=== PATIENT | female | born 1985 | race Caucasian/White ===

== ENCOUNTER 2021-01-02 14:13 | Day surgery (SDC) | payer BC, SELFPAY ==
--- NOTE | 2021-01-02 14:11 | PM.IMHP ---
H&P: HPI History of Present Illness Date/Time: 01/02/21 14:11 Chief Complaint: incomplete ab Narrative: Andria Kwon is a 35 year old female T3 P2 is admitted for suction D&C secondary to incomplete 1st trimester AB. She is actively bleeding and cervix is open. Risks and benefit Meds Home Medications and Allergies Allergies Allergy/AdvReac Type Severity Reaction Status Date / Time No Known Allergies Allergy Mild Unverified 05/01/09 23:55 Exam Const: General: no acute distress Eyes: General: appearance normal, both eyes and all related structures Neck: Neck: supple and no JVD Thyroid: thyroid normal Resp: Effort & Inspection: normal respiratory effort Auscultation: clear to auscultation bilaterally Cardio: Rate: regular rate Rhythm: regular rhythm GI: Inspection: non-distended GI Palp: Yes Soft to palpation, No Tenderness to palpation present (GI) and No Guarding due to palpation present (GI) Auscultation: normal bowel sounds : External Female Exam: normal external appearance Speculum Exam - Vagina: vaginal bleeding Speculum Exam - Cervix: Cervical os open Skin: General skin exam: no rashes or lesions noted Extrem: General: normal to inspection and no edema Psych: Mental Status: mental status grossly normal Affect: normal affect Assessment and Plan Additional Plan impression: 1St trimester incomplete AB Plan: Suction dilatation and curettage
--- NOTE | 2021-01-02 14:14 | WPDHPUPDATE1 ---
History and Physical Update Update Date/Time: 01/02/21 14:14 History and Physical has been reviewed, including an updated exam of the patient. There are NO changes in the patient's condition. Risks, benefits, and alternatives have been discussed and questions answered. Patient agrees to proceed with procedure.
[2021-01-02 14:42] VITALS: BP 121/58; PULSE 94; RESP 18; TEMP 37.1; O2SAT 98
[2021-01-02] MEDS: ACETAMINOPHEN 500 MG TABLET 1000 MG PO (14:46)
[2021-01-02 14:49] VITALS: BMI 22.4
--- NOTE | 2021-01-02 14:59 | WPDANESEPPF ---
Anes - Initial Pre Proc Eval Procedure: Operation Date: 01/02/21 15:00 Proposed Procedures p Suction Dilatation And Curettage - Bill Callahan MD Date/Time: 01/02/21 14:59 Surgeon: Bill Callahan MD Pre Op Diagnosis: Missed Ab Patient Data Age: 35 Gender: F Height: 5 ft 6.5 in Weight: 63.8 kg Last Vital Signs Temp 37.1 C 01/02/21 14:42 Pulse 94 01/02/21 14:42 Resp 18 01/02/21 14:42 BP 121/58 L 01/02/21 14:42 Pulse Ox 98 01/02/21 14:42 Allergies Allergy/AdvReac Type Severity Reaction Status Date / Time Penicillins Allergy Unknown Verified 01/02/21 14:46 Home Medications Medication Instructions Recorded Confirmed Type No Home Medications 01/02/21 01/02/21 History Patient hx anesthesia problems: none Family hx anesthesia problems: none Anes - Eval Final PreProcedure Day of Procedure 01/02/21 14:59 Patient weight: normal Heart: regular rate and rhythm Lungs: clear to auscultation Airway: Mallampati scale class 1 Neurological: alert and oriented Last oral intake: 6 hours ASA classification: II Emergent: yes Anesthetic plan: proceed Anesthesia type and monitoring: general GIVS and standard monitoring Informed Consent: The patient's anesthetic plan and its attendant risks and benefits were discussed with the patient/family/POA. Questions were solicited and answers provided to the satisfaction of the patient/family/POA.
[2021-01-02] MEDS: LACTATED RINGERS 1,000 ML 30 ML IV CONT (15:11)
[2021-01-02] MEDS: KETOROLAC 30 MG/ML VIAL (*BKC) IV PUSH (16:04)
[2021-01-02] MEDS: LIDOCAINE HCL 1% LOCAL INJ 20 ML VIAL 50 ML INFILTRATE (16:08)
--- NOTE | 2021-01-02 16:12 | PM.PROC ---
Procedure Note - Detailed Date of procedure: 01/02/21 Pre-op diagnosis: Missed Ab Surgeon: Bill Callahan MD postop diagnosis: Missed AB Procedure: Suction dilatation and curettage EBL: 25cc Anesthesia: IV sedation and local Complications: None Findings: Tissue consistent with products of in section. Description of procedure: The patient prepped draped in normal sterile fashion placed in dorsal lithotomy position. Under excellent IV sedation weighted speculum was placed in the posterior fornix of vagina. Anterior lip of the cervix was grasped with ring forceps. Uterus sounded to 11cm. Serial dilatation with fragmented dilators performed followed by passage of the 10. Suction curette removing a moderate amount of placental tissue. When a good grating sound was heard the procedure was terminated. All sponge, needle, instrument counts were correct. There were no immediate complications. She did not require RhoGAM as she is Rh positive
[2021-01-02 16:16] VITALS: BP 108/65; PULSE 74; RESP 16; O2SAT 98
[2021-01-02 16:45] VITALS: BP 107/69; PULSE 61; RESP 16
== END 2021-01-02 17:08 | disposition home or self-care (01) ==
PROVIDERS: PCP Internal Medicine; Visit Provider Obstetrics & Gynecology
PROC: (CPT 59820; principal; 2021-01-02 15:00)
DX: O02.1 Missed abortion (principal)
CPT/HCPCS: 59820; 88305; A9270; J1885; J2250; J2405; J2704; J3010; J7120

== ENCOUNTER 2023-05-13 08:30 | Outpatient (CLI) | payer BC, SELFPAY ==
[2023-05-14 15:27] LABS: Hematocrit 42.5 % (37.0-47.0); Hemoglobin 14.2 g/dL (12.0-15.0)
== END 2023-05-13 08:31 | disposition home or self-care (01) ==
LOC: ANHSURGERY 17:13
PROVIDERS: PCP Internal Medicine; Visit Provider Internal Medicine
DX: Z01.818 Encounter for other preprocedural examination (principal)
CPT/HCPCS: 36415; 85014; 85018; 86850; 86900; 86901

== ENCOUNTER 2023-05-15 00:13 | Day surgery (SDC) | payer BC, SELFPAY ==
[2023-05-12 13:43] VITALS: BMI 23.1
--- NOTE | 2023-05-12 13:48 | PC.NURSE ---
Report to the Outpatient Waiting Room, entrance under the green pavilion located off [facility], at time _0815_ on date _05/15/23_. Planned Procedure Time: _1015_. Time changes happen often and if your time is changed the preop area will call you the afternoon before. - You and your visitor will be asked to self-screen and do not enter if you have any COVID symptoms. - A mask is optional within the hospital at this time. Patients may have clear liquids (water, carbonated beverages, clear teas, apple juice) until 3 hours prior to surgery with a maximum of 20 ounces. - No food from midnight until time of surgery - Infants may have breast milk until 4 hours before surgery, infant formula 6 hours prior to surgery. - Children will be allowed to drink immediately following surgery. If applicable, please bring a bottle or sippy cup to assist with drinking. Juice, water, soda, and popsicles are readily available. For infants on formula, please bring formula the day of surgery. Pacifiers are allowed. Take the following medications with a SIP of water the morning of surgery: ___NONE__ DO NOT STOP ANY OF YOUR OTHER PRESCRIPTION MEDICATIONS PRIOR TO SURGERY ?EXCEPT THE FOLLOWING Medications to discontinue per physician NONE Date to take last dose Please no make-up, nail slovenian, hairspray, perfume, deodorant, or body powder the day of surgery. No jewelry (including any body piercings) or valuables the day of surgery, leave them at home. Please take a shower or bath the night before, or the morning of, surgery with an antibacterial soap. Wear comfortable, loose fitting clothing. Children are encouraged to wear pajamas. - Jewelry must be removed prior to entering the operating room. Rings and piercings that are not removed may be cut off. - The hospital will not accept responsibility for valuables. - Please leave all valuables, including medications, at home the day of surgery. If you are going home after surgery, a licensed limousine driver must drive you home. - NO public transportation without another adult if you receive anesthesia. - We recommend that an adult stay with you for 24 hours following discharge. - We also recommend that you do not drive, make important decision, drink alcoholic beverages, or take any drugs that were not prescribed by your health care provider for at least 24 hours after your discharge time. For Pediatric surgeries, we recommend two adults accompany the child home. Follow any additional instructions given to you from your surgeon. If you or anyone in your household have experienced Covid symptoms in the past week, please notify your surgeon or the nurse liaison at the phone number below for possible testing. Telephone instructions given to PATIENT_and asked if any additional questions and then verbalized understanding. Patient advised to call surgeon office or pre surgery nurse liaison [phone] if any additional questions.
--- NOTE | 2023-05-13 12:45 | HP_ITS ---
ANTICIPATED DATE OF ADMISSION 05/15/2023. REASON FOR ADMISSION This is a 37-year-old, 3, para 2, admitted for suction dilatation and curettage and laparoscopic tubal ligation. ?This was an undesired and a miscarriage. ?Ultrasound shows lack of growth and no cardiac motion with no embryonic motion noted. ?Risks and benefits reviewed. ?She is also like a tubal ligation. ?She desires no further pregnancies permanent. ?Failure rate etc. were reviewed. PAST MEDICAL HISTORY Negative. PAST OB HISTORY Two vaginal deliveries and a previous miscarriage. ALLERGIES Penicillin. BODY AFTER ALLERGIES SOCIAL HISTORY She is . ?She is a nonsmoker. ?Nondrinker. ?Nondrug user. FAMILY HISTORY Noncontributory. REVIEW OF SYSTEMS Negative. PHYSICAL EXAMINATION GENERAL: ?She is a well-developed, well-nourished female, in no acute distress. ?Under 40 pounds. HEENT: ?Within normal limits. NECK: ?Supple. CHEST: ?Clear. HEART: ?Regular. ABDOMEN: ?Soft, nontender, nondistended. ?No hepatosplenomegaly appreciated. EXTREMITIES: ?No Homans sign. GENITOURINARY: ?Cervix is closed, parous. ?Uterus is enlarged about 8 weeks in size. ?Adnexal exam shows no masses. ?Anus, perineum show no lesions. IMPRESSION Desires permanent sterilization and first-trimester missed . PLAN Suction dilatation and curettage and laparoscopic tubal ligation with rings. MTDD
[2023-05-15] VITALS (11 sets, daily range): BP systolic 114–131; BP diastolic 65–84; PULSE 51–89; RESP 12–18; TEMP 36.1–36.3; O2SAT 97–100
--- NOTE | 2023-05-15 07:17 | WPDHPUPDATE1 ---
History and Physical Update Update Date/Time: 05/15/23 07:17 History and Physical has been reviewed, including an updated exam of the patient. There are NO changes in the patient's condition. Risks, benefits, and alternatives have been discussed and questions answered. Patient agrees to proceed with procedure.
[2023-05-15] MEDS: ACETAMINOPHEN 500 MG TABLET 1000 MG PO (07:39)
[2023-05-15] MEDS: KETOROLAC 15 MG/ML VIAL (*BKC) IV PUSH (07:51)
--- NOTE | 2023-05-15 07:51 | WPDANESEPPF ---
Anes - Initial Pre Proc Eval Procedure: Operation Date: 05/15/23 09:15 Proposed Procedures p Suction Dilation and Curettage, - Bill Alarcon MD s Laparoscopic Bilateral Tubal Sterilization with Fallopian Rings - Bill Alarcon MD Date/Time: 05/15/23 07:51 Surgeon: Bill Alarcon MD Pre Op Diagnosis: missed AB, sterilization Patient Data Age: 37 Gender: F Height: 1.68 m Weight: 69.6 kg Allergies Allergy/AdvReac Type Severity Reaction Status Date / Time Penicillins Allergy Unknown Verified 05/15/23 07:24 Home Medications Medication Instructions Recorded Confirmed Type hydrocodone 5 mg-acetaminophen 325 1 tablet PO Q4H PRN pain #20 tabs 05/15/23 Rx mg tablet Patient hx anesthesia problems: none Family hx anesthesia problems: none Results Review: All pre-operative results and documents have been reviewed as part of the pre-operative evaluation. [facility] Social History Social History Smoking status: Never smoker Alcohol intake: never Substance use: never Living arrangements: with family Anes - Eval Final PreProcedure Day of Procedure 05/15/23 07:51 Patient weight: normal Heart: regular rate and rhythm Lungs: clear to auscultation Airway: Mallampati scale class 1 Neurological: alert and oriented Last oral intake: >/= 8 hours ASA classification: II Emergent: no Anesthetic plan: proceed Anesthesia type and monitoring: general ETT and standard monitoring Results Review: All pre-operative results and documents have been reviewed as part of the pre-operative evaluation. Informed Consent: The patient's anesthetic plan and its attendant risks and benefits were discussed with the patient/family/POA. Questions were solicited and answers provided to the satisfaction of the patient/family/POA.
[2023-05-15] MEDS: LACTATED RINGERS 1,000 ML 30 ML IV CONT ×2 (08:08→10:47)
--- NOTE | 2023-05-15 10:14 | W.PM.PROC2 ---
Procedure Note - Detailed Date of Procedure 05/15/23 Pre-op Diagnosis missed AB, sterilization Post-op Diagnosis Same Procedure Performed Laparoscopic bilateral tubal ligation with rings/ suction dilatation curettage Surgeon Bill Alarcon MD Anesthesia General Indications this is a 37-year-old female with an incomplete EAB and desires permanent sterilization Findings uterus consistent with 1st trimester missed A/B. Normal-appearing ovaries tubes and uterus otherwise. Normal-appearing appendix Description of Procedure patient was prepped draped in the normal sterileFashion placed in the dorsal lithotomy position. Under excellent general trach anesthesia weighted speculum placed in posterior fornix vagina. Anterior lip of the cervix grasped with single-tooth tenaculum. U the bladder emptied of clear urine the weighted speculum was removed. Gloves were changed. An infraumbilical incision made the Veress needle passed in the abdomen. Abdomen filled with CO2 gas 15 mils mercury. 5Mm trocar advanced under direct visualization assuring no injury. Patient placed in Trendelenburg and a suprapubic incision made. The 8mm trocar advanced under direct visualization assuring no injury. The right left fallopian tubes and then each grasped with a fallopian tube rings good blanching was noted in photo documentation undertaken. Remainder the pair pelvis appeared within normal limits and photo documentation undertaken. The gas removed from the abdomen. The trocars removed the incisions closed with 4-0 Monocryl and glue. Attention was turned to the suction D&C. The uterus sounded to 11cm. Serial dilatation with fragmented dilators performed followed by passes the 10. Suction curette passing it several times removing a moderate to large amount of placental tissue. When a good grating sound was heard the instruments withdrawn. The patient went to recovery in satisfactory condition. All sponge, needle, instrument counts were correct. There were no immediate complications Estimated Blood Loss 25 Drains No Packing No Pathology Yes Complications No immediate complications Condition Stable Disposition PACU
[2023-05-15] MEDS: fentaNYL CITRATE INJ (*CRX) 100 MCG/2 ML VIAL 25 MCG IV PUSH ×8 (10:30→11:06)
[2023-05-15] MEDS: HYDROmorphone HCL INJ (*CRX) 1 MG/ML SYR 0.5 MG IV PUSH (11:14)
[2023-05-15] MEDS: oxyCODONE HCL (*CRX) 5 MG TAB IR PO (11:50)
== END 2023-05-15 12:45 | disposition home or self-care (01) ==
PROVIDERS: PCP Internal Medicine; Visit Provider Obstetrics & Gynecology
PROC: (CPT 59820; principal; 2023-05-15 09:15)
PROC: (CPT 58671; 2023-05-15 09:15)
DX: O02.1 Missed abortion (principal); Z30.2 Encounter for sterilization
CPT/HCPCS: 59820; 58671; 88305; A4264; A9270; J0330; J1100; J1170; J1885; J2250; J2405; J2704; J3010; J7120